=== PATIENT | female | born 1995 | race Two or more races ===

== ENCOUNTER 2018-08-17 16:54 | Outpatient (CLI) | payer MEDICAID ==
[~2018-08-17] VITALS: Ht 154.9 cm; Wt 58.6 kg
[2018-08-17 17:14] VITALS: BP 94/52
[2018-08-17] MEDS ORDERED: FLUCONAZOLE 50 MG TABLET PO ONE (17:30)
[2018-08-17 17:40] LABS: AMPHETAMINE SCREEN, URINE Negative (Negative); BARBITURATE SCREEN, URINE Negative (Negative); BENZODIAZEPINE SCREEN, URINE Negative (Negative); CANNABINOID SCREEN, URINE Negative (Negative); COCAINE SCREEN, URINE Negative (Negative); METHADONE SCREEN, URINE Negative (Negative); OPIATE SCREEN, URINE Negative (Negative)
[2018-08-17 17:46] LABS: MICROSCOPIC INDICATED
== END 2018-08-17 18:00 | disposition home or self-care (01) ==
LOC: LDOP 16:54
PROVIDERS: ATTEND Obstetrics & Gynecology
DX: O98.813 Other maternal infectious and parasitic diseases complicating pregnancy, third trimester (principal); B37.9 Candidiasis, unspecified; Z3A.33 33 weeks gestation of pregnancy
CPT/HCPCS: 59025; 80307; 81001; 87086; 99201; G0463

== ENCOUNTER 2021-04-09 22:45 | Emergency (ER) | payer MEDICAID ==
[~2021-04-09] VITALS: Ht 154.9 cm; Wt 46.8 kg
--- NOTE | 2021-04-09 22:54 | NUR ---
PT MISCARRIED ON THURSDAY, , WAS 12 WEEKS ALONG, BLEEDING SINCE THEN, 1 PAD PER HOUR. CLOTTED BLOOD. PLACED ON SPO2/BP/ECG MONITORING AT THIS TIME. PT REPORTS SOME DIZZINESS. CRAMPING ABODMINAL PAIN 02/26. PT NAD, Patient is resting comfortably in bed. Bed in lowest, rails engaged, call light on lap. Vital Signs within normal limits. WCTM.
[2021-04-10 00:23] LABS: BASOPHILS % (AUTO) 1 % (0-1); EOSINOPHILS % (AUTO) 2 % (1-7); LYMPHOCYTES % (AUTO) 21 % (22-44); MEAN CORPUSCULAR HEMOGLOBIN 31.4 pg (27.0-34.8); MEAN CORPUSCULAR HGB CONC 34.7 g/dL (32.4-35.8); MEAN PLATELET VOLUME 8.5 fL (7.4-10.4); MONOCYTES % (AUTO) 8 % (2-9); NEUTROPHILS % (AUTO) 69 % (42-75); PLATELET COUNT 229 x10^3/uL (130-400); RED BLOOD COUNT 3.22 x10^6/uL (3.82-5.3); RED CELL DISTRIBUTION WIDTH 12.7 % (9.6-15.2)
--- NOTE | 2021-04-10 00:27 | NUR ---
Patient is resting comfortably in bed. Bed in lowest, rails engaged, call light on lap. Vital Signs within normal limits. EYES CLOSED, EVEN AND UNLABORED RESPIRATIONS NOTED, SO AT BS, WAITING FOR LAB RESULTS. WCTM.
[2021-04-10 02:04] VITALS: BP 118/79
--- NOTE | 2021-04-10 02:05 | NUR ---
Patient/significant other given discharge instructions and they have confirmed that they understand the instructions. Patient ambulatory with steady gait. NAD, all questions answered appropriately, denies additional needs at this time. No personal belongings left in room after discharge.
== END 2021-04-10 02:06 | disposition home or self-care (01) ==
LOC: ED 23:16
DX: O03.6 Delayed or excessive hemorrhage following complete or unspecified spontaneous abortion (principal)
CPT/HCPCS: 36415; 76801; 84703; 85025; 99284